=== PATIENT | male | born 2000 | race African-American/Black ===

== ENCOUNTER 2018-09-16 20:27 | Emergency (ER) | payer OTHER ==
--- NOTE | 2018-09-16 20:45 | ER Report ---
History and Physical Time Seen By MD: 20:45 Hx. of Stated Complaint: pain with urination HPI/ROS CHIEF COMPLAINT: pain with urination HISTORY OF PRESENT ILLNESS: This is a 18 year old male. Has had a few days of pain with urination. No abdominal pain. No flank pain. No fevers or chills. He has not had urinary problems in the past. Is sexually active, but no history of STDs in the past. Allergies: Coded Allergies: No Known Drug Allergies (Unverified , 09/16/18) Home Meds No Active Prescriptions or Reported Meds Reviewed Nurses Notes: Yes Constitutional Vital Sign - Last 24 Hours 09/16/18 09/16/18 09/16/18 09/16/18 20:37 20:42 20:58 21:00 Temp 97.8 Pulse 52 56 Resp 16 B/P (MAP) 132/78 124/80 (95) 121/72 (88) Pulse Ox 94 94 09/16/18 09/16/18 09/16/18 09/16/18 21:12 21:27 21:30 21:42 Pulse 60 58 60 B/P (MAP) 121/73 (89) Pulse Ox 95 94 95 Physical Exam General: Alert, no acute distress. Abdomen: Soft, non tender. No CVA tenderness. Musculoskeletal: No pain. Cardiovascular: Normal peripheral perfusion. Respiratory: Breathing easily. No skin rashes. Medical Decision Making Data Points Laboratory Hematology Test 09/16/18 20:54 Urine Color Colorless Urine Clarity Clear Urine pH 8.0 pH (4.8-9.5) Urine Specific Shell 1.002 Urine Protein Negative mg/dL (NEGATIVE) Urine Glucose (UA) Negative mg/dL (NEGATIVE) Urine Ketones Negative mg/dL (NEGATIVE) Urine Blood Negative (NEGATIVE) Urine Nitrite Negative (NEGATIVE) Urine Bilirubin Negative (NEGATIVE) Urine Urobilinogen Negative mg/dL (0.2-1.9) Urine Leukocyte Esterase Trace (NEGATIVE) Urine RBC None /HPF (0-2/HPF) Urine WBC 9 /HPF (0-5/HPF) Urine Squamous Epithelial Cells None /LPF (</=FEW) Urine Bacteria Negative /HPF (NONE-FEW) Urine Mucus None /HPF (NONE-FEW) Chemistry Test 09/16/18 20:54 Urine Color Colorless Urine Clarity Clear Urine pH 8.0 pH (4.8-9.5) Urine Specific Shell 1.002 Urine Protein Negative mg/dL (NEGATIVE) Urine Glucose (UA) Negative mg/dL (NEGATIVE) Urine Ketones Negative mg/dL (NEGATIVE) Urine Blood Negative (NEGATIVE) Urine Nitrite Negative (NEGATIVE) Urine Bilirubin Negative (NEGATIVE) Urine Urobilinogen Negative mg/dL (0.2-1.9) Urine Leukocyte Esterase Trace (NEGATIVE) Urine RBC None /HPF (0-2/HPF) Urine WBC 9 /HPF (0-5/HPF) Urine Squamous Epithelial Cells None /LPF (</=FEW) Urine Bacteria Negative /HPF (NONE-FEW) Urine Mucus None /HPF (NONE-FEW) Urinalysis Test 09/16/18 20:54 Urine Color Colorless Urine Clarity Clear Urine pH 8.0 pH (4.8-9.5) Urine Specific Shell 1.002 Urine Protein Negative mg/dL (NEGATIVE) Urine Glucose (UA) Negative mg/dL (NEGATIVE) Urine Ketones Negative mg/dL (NEGATIVE) Urine Blood Negative (NEGATIVE) Urine Nitrite Negative (NEGATIVE) Urine Bilirubin Negative (NEGATIVE) Urine Urobilinogen Negative mg/dL (0.2-1.9) Urine Leukocyte Esterase Trace (NEGATIVE) Urine RBC None /HPF (0-2/HPF) Urine WBC 9 /HPF (0-5/HPF) Urine Squamous Epithelial Cells None /LPF (</=FEW) Urine Bacteria Negative /HPF (NONE-FEW) Urine Mucus None /HPF (NONE-FEW) ED Course/Re-evaluation ED Course Urinalysis negative other than a few white cells. Culture ordered. CG and Chlamydia ordered as well. Treated with Rocephin 250mgm IM and Azithromycin 1000mg oral dose. Awaiting final culture/testing and will let the patient know. Decision to Disposition Date: Sep 16, 2018 Decision to Disposition Time: 21:59 Depart Departure Latest Vital Signs Vital Signs Date Time Temp Pulse Resp B/P (MAP) Pulse Ox O2 Delivery O2 Flow Rate FiO2 09/16/18 21:42 60 95 09/16/18 21:30 121/73 (89) 09/16/18 20:37 97.8 16 Impression: Primary Impression: Painful urination Condition: Improved Disposition: HOME OR SELF-CARE Referrals: SINDY BERTRAND MD New Scripts No Active Prescriptions or Reported Meds Patient Instructions: Dysuria (ED) Additional Instructions: At this point we do not know why your urine is painful. We have urine cultures and testing for infections that will be done in the next few days. We have covered with a couple of antibiotics at this time that cover for potentially sexually transmitted infections. We recommend avoiding sexual activity until these tests are back. If these are negative and you are still having pain, the next step in the evaluation would be to see a Urologist for further evaluation. LAUREN LOPEZ MD Sep 16, 2018 20:45
[2018-09-16 21:30] VITALS: BP 121/73
[2018-09-16] MEDS ORDERED: cefTRIAXone 250 MG VIAL IM ONE (21:35)
[2018-09-16] MEDS ORDERED: AZITHROMYCIN 250 MG TAB PO ONE (21:35)
== END 2018-09-16 22:05 | disposition home or self-care (01) ==
LOC: ER 20:38
DX: R30.9 Painful micturition, unspecified (principal)
CPT/HCPCS: 81001; 87088; 87491; 87591; 96372; 99283; J0696; Q0144

== ENCOUNTER 2018-12-19 18:44 | Emergency (ER) | payer OTHER ==
[2018-12-19 18:50] VITALS: BP 137/82
--- NOTE | 2018-12-19 18:51 | ER Report ---
History and Physical Time Seen By MD: 18:51 HPI/ROS CHIEF COMPLAINT: Exposure to chlamydia HISTORY OF PRESENT ILLNESS: This is a 18-year-old male who presents to the emergency department for an exposure to chlamydia. Patient states he's had unprotected sex with his girlfriend, states that he found out that she was positive for chlamydia unsure about gonorrhea. Patient presents today wanting testing for GC chlamydia and prophylactic treatment. His no discharge, fevers, lymphadenopathy or any other concerns at this time. REVIEW OF SYSTEMS: Respiratory: No cough, no dyspnea. Cardiovascular: No chest pain, no palpitations. Gastrointestinal: No vomiting, no abdominal pain. Genitourinary: As above. Musculoskeletal: No back pain. Allergies: Coded Allergies: No Known Drug Allergies (Unverified , 12/19/18) Home Meds No Active Prescriptions or Reported Meds Past Medical/Surgical History The patient has no sick and past medical or surgical history. Reviewed Nurses Notes: Yes Constitutional Vital Sign - Last 24 Hours 12/19/18 12/19/18 12/19/18 18:49 18:50 18:59 Temp 98.1 Pulse 68 73 Resp 14 B/P (MAP) 137/82 (100) 137/82 Pulse Ox 94 92 O2 Delivery Room Air Physical Exam General Appearance: The patient is alert, has no immediate need for airway protection and no current signs of toxicity. Eyes: Pupils equal and round no injection. Respiratory: Chest is non tender, lungs are clear to auscultation. Cardiac: regular rate and rhythm. Gastrointestinal: Abdomen is soft and non tender, no masses, bowel sounds normal. Musculoskeletal: Neck: Neck is supple and non tender. Extremities have full range of motion and are non tender. Skin: No rashes or lesions. DIFFERENTIAL DIAGNOSIS: After history and physical exam differential diagnosis was considered for STI exposure. Medical Decision Making Data Points Laboratory Hematology Test 12/19/18 18:47 Chemistry Test 12/19/18 18:47 ED Course/Re-evaluation ED Course The patient was admitted to room. A history and physical obtained. Differential diagnoses were considered. Currently, patient has no symptoms. A urine was collected, GC chlamydia urine was ordered. Patient was given 1 g of PO azithromycin and 250 mg IM Rocephin. I did tell the patient we would contact him with the results. Patient expressed understanding, will continue monitoring for any other lesions or penile discharge. Decision to Disposition Date: Dec 19, 2018 Decision to Disposition Time: 19:29 Depart Departure Latest Vital Signs Vital Signs Date Time Temp Pulse Resp B/P (MAP) Pulse Ox O2 Delivery O2 Flow Rate FiO2 12/19/18 18:59 73 92 12/19/18 18:50 98.1 14 137/82 Room Air Impression: Primary Impression: Exposure to STD Condition: Improved Disposition: HOME OR SELF-CARE New Scripts No Active Prescriptions or Reported Meds Patient Instructions: Safe Sex (ED), Sexually Transmitted Diseases (ED) Additional Instructions: You have been treated for Chlamydia and gonorrhea. We will contact you with the results in 2-4 days. Please use condoms when having sexual intercourse. Be sure to drink plenty of water. Get plenty of rest. Return to ER for any other concerns or worsening symptoms. PEÑA VALDOVINOS [employer] Dec 19, 2018 18:51
[2018-12-19] MEDS ORDERED: cefTRIAXone 250 MG VIAL IM ONE (19:00)
[2018-12-19] MEDS ORDERED: AZITHROMYCIN 250 MG TAB PO ONE (19:00)
== END 2018-12-19 19:43 | disposition home or self-care (01) ==
LOC: ER 19:00
DX: Z20.2 Contact with and (suspected) exposure to infections with a predominantly sexual mode of transmission (principal)
CPT/HCPCS: 87491; 87591; 96372; 99282; J0696; Q0144